=== PATIENT | male | born 1980 | race Caucasian/White ===

== ENCOUNTER 2017-04-27 11:14 | Emergency (ER) | payer OTHER, BC ==
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
--- NOTE | 2017-04-29 10:57 | CR ---
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 No acute fracture or dislocation. No lytic or blastic bone lesions. [id number] [facility]
== END 2017-04-27 12:55 | disposition home or self-care (01) ==
LOC: LB.ED 11:14
DX: S63.641A Sprain of metacarpophalangeal joint of right thumb, initial encounter (principal); S86.112A Strain of other muscle(s) and tendon(s) of posterior muscle group at lower leg level, left leg, initial encounter; V89.2XXA Person injured in unspecified motor-vehicle accident, traffic, initial encounter; Y92.410 Unspecified street and highway as the place of occurrence of the external cause
CPT/HCPCS: 73140-F5; 99283